=== PATIENT | male | born 1985 | race Caucasian/White ===

== ENCOUNTER 2016-12-08 13:00 | Outpatient (CLI) ==
[2016-08-12 10:02] VITALS: BMI 30.4
--- NOTE | 2016-12-08 14:22 | US ---
EXAMINATION: Retroperitoneal renal sonogram. HISTORY: Painful maturation, unspecified TECHNIQUE: Real time with duplex. COMPARISON: CT abdomen from 08/12/2016 FINDINGS: Right Kidney: 10.5 x 4.3 x 4.6 cm, cortex 1.4 cm Left kidney: 10.4 x 4.9 x 4.0 cm, cortex 1.3 cm The kidneys have normal size, contour, position, and echogenicity. No hydroureter or hydronephrosis is appreciated. A trace postvoid bladder residual is noted. The bladder is morphologically normal. No echogenic calculi or mass lesions are demonstrated. IMPRESSION: 1. Normal renal sonogram 2. Trace postvoid bladder residual. 3. No ureteral pelvicaliectasis.
== END 2016-12-08 13:01 | disposition home or self-care (01) ==
LOC: RAD 13:00
PROVIDERS: ATTEND Nurse Practitioner Family
DX: R30.9 Painful micturition, unspecified (principal); M54.5 Low back pain
CPT/HCPCS: 76770

== ENCOUNTER 2016-12-16 14:13 | Outpatient (CLI) ==
[2016-08-12 10:02] VITALS: BMI 30.4
--- NOTE | 2016-12-16 15:38 | US ---
EXAM: Scrotal ultrasound HISTORY: Pain 1 month COMPARISON: None TECHNIQUE: Scrotal ultrasound was performed FINDINGS: Right testicle noted to be located in the right inguinal region. Right testicle measures 2.2 x 2.7 x 3.3 cm. Right testicle is normal in echogenicity. Right testicle appears decreased in vascularit y. There is arterial Doppler flow present in the right testicle. Right epididymis appears normal. . No right hydrocele or varicocele. Left testicle measures 1.5 x 2.0 x 2.6 cm. Left testicle is normal in echogenicity. Left testicle appears decreased in vascularity. There is arterial Doppler flow present in the left testicle. Lef t epididymis not visualized. No left hydrocele or varicocele. There is marked bilateral scrotal wall thickening/edema, greater on the left. There are areas of ec hogenic artifact in the scrotal subcutaneous soft tissues. IMPRESSION: 1. Marked bilateral scrotal wall thickening/edema. There are areas of echogenic artifact in the sc rotal subcutaneous/soft tissues, raising possibility of subcutaneous air. CT pelvis with contrast r ecommended for further evaluation. 2. Right testicle noted to be located in the right inguinal region. Testicles are normal in echoge nicity with Doppler flow present in both testicles. Symmetrically decreased vascularity in both kenny ticles is likely due to marked scrotal wall edema/thickening, with torsion considered unlikely give n symmetric nature, normal testicular echogenicity, and chronic symptoms.. 3. Normal right epididymis. Left epididymis not visualized.
--- NOTE | 2016-12-16 16:29 | CT ---
EXAM: CT pelvis with contrast HISTORY: Other specified disorders of the male genital organs COMPARISON: None TECHNIQUE: CT pelvis performed with intravenous contrast. Coronal and sagittal reformatted images obtained. FINDINGS: The visualized bowel is unremarkable. There are bilateral pars defects L5. No anterolis thesis. No acute abnormalities of the bones. Bladder unremarkable. Prostate normal in size. No l ymphadenopathy or ascites. Both testicles are located in the scrotal sac. No scrotal wall thickeni ng identified. No subcutaneous air or scrotal air identified. No inflammatory changes identified i n the pelvis. IMPRESSION: 1. No inflammatory changes identified in the pelvis. No scrotal wall thickening or air. Findings on ultrasound were artifactual. Both testicles are located in the scrotum. 2. Bilateral pars defects of L5. No anterolisthesis.
== END 2016-12-16 14:14 | disposition home or self-care (01) ==
LOC: RAD 14:13
PROVIDERS: ATTEND Nurse Practitioner Family
DX: N50.89 Other specified disorders of the male genital organs (principal); R30.9 Painful micturition, unspecified

== ENCOUNTER 2017-03-03 06:23 | Emergency (ER) ==
[2017-03-03 06:36] VITALS: BP 147/98; TEMP 98.4; BMI 27.1
[2017-03-03] MEDS ORDERED: URO-JET MUCOUSMEMB STA (06:47)
[2017-03-03] MEDS ORDERED: FLOMAX PO STA (06:50)
--- NOTE | 2017-03-03 06:53 | ED.PDOC ---
General ED Provider: Dr. DUDLEY CHILD-ER Chief Complaint: Urinary Problem Stated Complaint: i havent been able to pee Time Seen by Physician: 06:51 Mode of Arrival: Walk-In Information Source: Patient Exam Limitations: No limitations Primary Care Provider: DANGELO CARO Nursing and Triage Documentation Reviewed and Agree: Yes Complaint Exam - Complaint/Exam Patient Complains of: Reports: Groin pain Onset/Duration: 8hrs Symptoms Are: Still present Timing: Constant Initial Severity: Mild Current Severity: Moderate Location of Pain: Reports: Suprapubic Character: Reports: Dull, Cramping Aggravating: Reports: Voiding Alleviating: Reports: None Associated Signs and Symptoms: Reports: Decreased urine output, Abdominal Pain. Denies: Diaphoresis, Back pain, Fever, Hematuria, Dysuria, Constipation, Blood in stool, Rectal pain, Appetite change, Nausea, Vomiting, Penile swelling , Penile discharge, Increased urine frequency, Increased thirst, Decreased activity, Lethargy, Scrotal pain, Scrotal swelling Last Voided: midnight Testicular Torsion Risk Factors: Reports: None Surgical Obstruction Risk Factors: Reports: None Abdominal Findings: Present: None Differential Diagnoses: Other Review of Systems - Review Of Systems Constitutional: Reports: No symptoms Eyes: Reports: No symptoms Ears, Nose, Mouth, Throat: Reports: No symptoms Respiratory: Reports: No symptoms Cardiac: Reports: No symptoms GI: Reports: No symptoms : Reports: Pain Musculoskeletal: Reports: No symptoms Skin: Reports: No symptoms Neurological: Reports: No symptoms Endocrine: Reports: No symptoms Hematologic/Lymphatic: Reports: No symptoms All Other Systems: Reviewed and Negative Past Medical History - Past Medical History Previously Healthy: Yes Endocrine: Reports: Dyslipidemia Cardiovascular: Reports: Hypertension Respiratory: Reports: None Hematological: Reports: None Gastrointestinal: Reports: GERD Genitourinary: Reports: None, UTI Neuro/Psych: Reports: None Musculoskeletal: Reports: None Cancer: Reports: None Other Pertinent Past Medical History: Yes: ALCOHOLIC, abdominal pain - Surgical History General Surgical History: Reports: Other (CORNEAL TRANSPLANTS [id number] REMOVAL (LEFT)) - Family History Family History: Reports: Unknown - Social History Smoking Status: Former smoker Hx Substance Use: Yes (MARIJUANA) Alcohol Screening: None Lives: With family - Immunizations Tetanus Shot up to Date: Yes Physical Exam - Physical Exam Appearance: Well-appearing, No pain distress, Well-nourished Pain Distress: Mild Eyes: EUGENE, EOMI, Conjunctiva clear ENT: Ears normal, Nose normal, Oropharynx normal Neck: Supple Respiratory: Airway patent Cardiovascular: RRR, Pulses normal, No rub, No murmur GI/: Soft, Nontender, No masses, Bowel sounds normal, No Organomegaly Musculoskeletal: Normal strength, ROM intact, No edema, No calf tenderness Skin: Warm Neurological: Sensation intact, Motor intact, Reflexes intact, Cranial nerves intact, Alert, Oriented Psychiatric: Affect appropriate, Mood appropriate, Anxious Re-Evaluation - Re-Evaluation Time of Re-Evaluation: 06:53 Status: Improved Vital Signs Stable: Yes Pain Level: 1 Appearance: NAD Lungs: Clear Skin: Warm and Dry Neuro: Alert and Oriented X3 CV: RRR Critical Care Note - Critical Care Note Total Time (mins): 0 Course - Course Orders, Labs, Meds: Orders Category Date Time Status Bladder Scan [ED BLADDER SCAN] .ONCE EMERGENCY 03/03/17 06:47 Active Garcia [ED CATHETER INSERTION AND CARE] .ONCE EMERGENCY 03/03/17 06:47 Active Lidocaine HCl [Uro-Jet] MEDS 03/03/17 06:47 Discontinued 10 ml [id number] ONCE STA Tamsulosin HCl [Flomax] MEDS 03/03/17 06:50 Discontinued 0.4 mg PO ONCE STA Medications Discontinued Medications Generic Name Dose Route Start Last Admin Trade Name Jorge Lq PRN Reason Stop Dose Admin Lidocaine HCl 10 ml 03/03/17 06:47 Uro-Jet [id number] 03/03/17 06:48 ONCE STA Tamsulosin HCl 0.4 mg 03/03/17 06:50 Flomax PO 03/03/17 06:51 ONCE STA Vital Signs: Temp Pulse Resp BP Pulse Ox 03/03/17 06:26 98.4 F 93 H 20 147/98 H 98 Departure - Departure Time of Disposition: 06:54 Disposition: HOME SELF-CARE Discharge Problem: Acute urinary retention Instructions: Urinary Retention in Men (ED) Condition: Good Pt referred to PMD for follow-up: Yes Additional Instructions: flomax 0.4mg #14---doxycycline 100mg bid x 15 days--f/u wtih dr mcnamara Allergies/Adverse Reactions: Allergies clindamycin Adverse Reaction (Verified 03/03/17 06:33) Hives Home Medications: Ambulatory Orders Dextroamphetamine/Amphetamine [Adderall 30 mg Tablet] 15 mg PO DIRECTED 03/03 Dextroamphetamine/Amphetamine [Adderall 30 mg Tablet] 30 mg PO QAM 03/03/17 Disposition Discussed With: Patient
[2017-03-03 08:35] LABS: ADD URINE MICROSCOPIC NO; BILIRUBIN,URINE Negative (NEGATIVE); KETONES,URINE Negative (NEGATIVE); LEUKOCYTE ESTERASE ,URINE Negative (NEGATIVE); NITRITE,URINE Negative (NEGATIVE); PH,URINE 6.5 (5-9); PROTEIN,URINE Negative (NEGATIVE); URINE, BLOOD Negative (NEGATIVE)
== END 2017-03-03 07:40 | disposition home or self-care (01) ==
LOC: ED 06:23
DX: R33.9 Retention of urine, unspecified (principal); R10.30 Lower abdominal pain, unspecified
CPT/HCPCS: 81001; 99282

== ENCOUNTER 2017-03-07 01:25 | Emergency (ER) ==
[2017-03-07 01:44] VITALS: BP 148/90; TEMP 98.9; BMI 25.8
[2017-03-07 02:25] LABS: BASOPHILS # (AUTO) 0.1 K/uL (0-0.2); BASOPHILS % (AUTO) 0.6 % (0.0-3.0); EOSINOPHILS # (AUTO) 0.2 K/ul (0.0-0.7); EOSINOPHILS % (AUTO) 1.3 % (0.0-7.0); HEMATOCRIT 41.9 % (42.0-52.0); HEMOGLOBIN 14.4 g/dl (14.0-18.0); IMMATURE GRANULOCYTE % (AUTO) 0.3 % (0.0-5.0); LYMPHOCYTES # (AUTO) 2.3 K/uL (0.60-3.4); LYMPHOCYTES % (AUTO) 19.9 (10.0-50.0); MEAN CORPUSCULAR HGB CONC 34.4 (31.8-35.4); MEAN CORPUSCULAR VOLUME 84.5 fl (80.0-94.0); MONOCYTES # (AUTO) 0.7 K/uL (0.4-2.0); MONOCYTES % (AUTO) 5.6 (0-10); NEUTROPHILS # (AUTO) 8.4 K/ul (2.0-6.9); NEUTROPHILS % (AUTO) 72.3; PLATELET COUNT 236 10^3/uL (140-440); RED BLOOD COUNT 4.96 10^6/ul (4.70-6.10); WHITE BLOOD COUNT 11.61 K/ul (4.2-10.2)
[2017-03-07 02:43] LABS: ALBUMIN 3.8 g/dL (3.4-5.0); ALBUMIN/GLOBULIN RATIO 1.23; ANION GAP 13.6; BILIRUBIN,TOTAL 0.26 mg/dL (0.00-1.20); BUN/CREATININE RATIO 7.69; CALCIUM 9.4 mg/dL (8.2-10.2); CREATININE 0.91 mg/dL (0.60-1.10); POTASSIUM 3.6 mmol/L (3.5-5.1); TOTAL PROTEIN 6.9 g/dL (6.4-8.2)
[2017-03-07 02:48] LABS: BILIRUBIN,URINE Negative (NEGATIVE); KETONES,URINE Negative (NEGATIVE); LEUKOCYTE ESTERASE ,URINE Negative (NEGATIVE); NITRITE,URINE Negative (NEGATIVE); PH,URINE 5.5 (5-9); PROTEIN,URINE Negative (NEGATIVE); URINE, BLOOD Negative (NEGATIVE)
[2017-03-07 02:49] LABS: ADD URINE MICROSCOPIC NO
--- NOTE | 2017-03-07 03:45 | CT ---
EXAM: CT scan abdomen pelvis with without contrast HISTORY: Abdominal pain COMPARISON: CT scan abdomen pelvis 08/12/2016 FINDINGS: Contiguous axial images obtained through the abdomen pelvis for after uneventful administ ration intravenous contrast utilizing 3-mm collimation. Sagittal coronal reconstructions were image d and reviewed.. The visualized lung bases are clear. Gallbladder is contracted. The liver, pancr eas, spleen and adrenal glands have normal enhanced CT appearance. The kidneys excrete contrast in a normal fashion bilaterally.. The abdominal aorta is normal in course and caliber There is a smal l umbilical hernia containing fat There is a normal retrocecal appendix. The prostate gland normal in size.. There is no free fluid or inflammatory changes. There is bilateral pars defect at L5. IMPRESSION: No acute intra-abdominal findings.
[2017-03-07] MEDS ORDERED: ROCEPHIN IM STA (04:09)
[2017-03-07] MEDS ORDERED: LIDOCAINE 1 % AMP 5 ML (SUTURES) IM STA (04:09)
[2017-03-07] MEDS ORDERED: NORCO 7.5-325 PO STA (04:10)
[2017-03-07] MEDS ORDERED: PYRIDIUM PO STA (04:10)
--- NOTE | 2017-03-07 04:13 | ED.PDOC ---
General ED Provider: Dr. DUDLEY CHILD-ER Chief Complaint: Abdominal Pain Stated Complaint: it hurts when i pee Time Seen by Physician: 01:40 Mode of Arrival: Walk-In Information Source: Patient Exam Limitations: No limitations Primary Care Provider: DANGELO CARO Nursing and Triage Documentation Reviewed and Agree: Yes Complaint Exam - Complaint/Exam Patient Complains of: Reports: Dysuria Onset/Duration: 16hrs Symptoms Are: Still present Initial Severity: Mild Current Severity: Mild Location of Pain: Reports: Suprapubic Character: Reports: Burning, Dull Aggravating: Reports: Voiding Alleviating: Reports: None Associated Signs and Symptoms: Reports: Abdominal Pain. Denies: Diaphoresis, Back pain, Fever, Hematuria, Dysuria, Constipation, Blood in stool, Rectal pain , Appetite change, Nausea, Vomiting, Penile swelling, Penile discharge, Decreased urine output, Increased urine frequency, Increased thirst, Decreased activity, Lethargy, Scrotal pain, Scrotal swelling Testicular Torsion Risk Factors: Reports: None Related Surgical History: Reports: None Abdominal Findings: Present: None Differential Diagnoses: Prostatitis, UTI, Other Review of Systems - Review Of Systems Constitutional: Reports: No symptoms Eyes: Reports: No symptoms Ears, Nose, Mouth, Throat: Reports: No symptoms Respiratory: Reports: No symptoms Cardiac: Reports: No symptoms GI: Reports: No symptoms : Reports: Burning, Dysuria, Pain, Urgency Musculoskeletal: Reports: No symptoms Skin: Reports: No symptoms Neurological: Reports: No symptoms Endocrine: Reports: No symptoms Hematologic/Lymphatic: Reports: No symptoms All Other Systems: Reviewed and Negative Past Medical History - Past Medical History Previously Healthy: Yes Endocrine: Reports: Dyslipidemia Cardiovascular: Reports: Hypertension Respiratory: Reports: None Hematological: Reports: None Gastrointestinal: Reports: GERD Genitourinary: Reports: None, UTI Neuro/Psych: Reports: None Musculoskeletal: Reports: None Cancer: Reports: None Other Pertinent Past Medical History: Yes: ALCOHOLIC, abdominal pain - Surgical History General Surgical History: Reports: Other (CORNEAL [employer]ANSPLANTS [id number] REMOVAL (LEFT)) - Family History Family History: Reports: Unknown - Social History Smoking Status: Former smoker Hx Substance Use: Yes (MARIJUANA) Alcohol Screening: None Lives: With family - Immunizations Tetanus Shot up to Date: Yes Physical Exam - Physical Exam Appearance: Well-appearing, No pain distress, Well-nourished Eyes: EUGENE, EOMI, Conjunctiva clear ENT: Ears normal, Nose normal, Oropharynx normal Neck: Supple Respiratory: Airway patent Cardiovascular: RRR, Pulses normal, No rub, No murmur GI/: Soft, Nontender, No masses, Bowel sounds normal, No Organomegaly Musculoskeletal: Normal strength, ROM intact, No edema, No calf tenderness Skin: Warm Neurological: Sensation intact, Motor intact, Reflexes intact, Cranial nerves intact, Alert, Oriented Psychiatric: Affect appropriate, Mood appropriate Interpretation - Radiology Interpretation Radiology Interpretation By: Radiologist Radiology Results: Negative Exam Interpreted: CT Scan Critical Care Note - Critical Care Note Total Time (mins): 0 Course - Course Hematology/Chemistry: 03/07/17 02:20 03/07/17 02:20 Orders, Labs, Meds: Lab Review 03/07/17 03/07/17 02:20 02:35 WBC 11.61 H RBC 4.96 Hgb 14.4 Hct 41.9 L MCV 84.5 MCH 29.0 MCHC 34.4 RDW Coeff of Zoey 13.1 Plt Count 236 Immature Gran % (Auto) 0.3 Neut % (Auto) 72.3 Lymph % (Auto) 19.9 [place] % (Auto) 5.6 Eos % (Auto) 1.3 Baso % (Auto) 0.6 Immature Gran # (Auto) 0.0 Neut # 8.4 H Lymph # 2.3 [place] # 0.7 Eos # 0.2 Baso # 0.1 Sodium 139 Potassium 3.6 Chloride 105 Carbon Dioxide 24 Anion Gap 13.6 BUN 7 Creatinine 0.91 Estimated GFR (MDRD) 96.00 BUN/Creatinine Ratio 7.69 Glucose 117 H Calcium 9.4 Total Bilirubin 0.26 AST 18 ALT 15 Alkaline Phosphatase 49 L Total Protein 6.9 Albumin 3.8 Globulin 3.1 Albumin/Globulin Ratio 1.23 Amylase 22 L Lipase 25 Urine Color Yellow Urine Clarity Clear Urine pH 5.5 Ur Specific [place] >=1.030 Urine Protein Negative Urine Glucose (UA) Negative Urine Ketones Negative Urine Blood Negative Urine Nitrite Negative Urine Bilirubin Negative Urine Urobilinogen 0.2 Ur Leukocyte Esterase Negative Orders Category Date Time Status NPO REMINDER: IMAGING ONCE CARE 03/07/17 01:58 Completed IV [ED IV/MEDIPORT/POWERPORT] .ONCE EMERGENCY 03/07/17 01:58 Active AMYLASE Stat LAB 03/07/17 02:20 Completed CBC W/ AUTO DIFF Stat LAB 03/07/17 02:20 Completed COMPREHENSIVE METABOLIC PANEL Stat LAB 03/07/17 02:20 Completed LIPASE Stat LAB 03/07/17 02:20 Completed URINALYSIS C & S IF INDICATED Stat LAB 03/07/17 02:35 Completed 0.9 % Sodium Chloride [Saline Flush] MEDS 03/07/17 01:58 Active 1 syr IVF PRN PRN Ceftriaxone Sodium [Rocephin] MEDS 03/07/17 04:09 Stat 1 gm IM ONCE STA Hydrocodone Bit/Acetaminophen [[place] 7.5-325] MEDS 03/07/17 04:10 Stat 1 tab PO ONCE STA Lidocaine HCl/Pf [Lidocaine 1 % Amp 5 ml (Sutures)] MEDS 03/07/17 04:09 Stat 2.1 ml IM ONCE STA Phenazopyridine HCl [Pyridium] MEDS 03/07/17 04:10 Stat [address] PO ONCE [address] ABDOMEN/PELVIS W/WO CONTRAS Stat RADS 03/07/17 01:57 Completed Medications Generic Name Dose Route Start Last Admin Trade Name Freq PRN Reason Stop Dose Admin Acetaminophen/Hydrocodone Bitart 1 tab 03/07/17 04:10 [place] 7.5-325 PO 03/07/17 04:11 ONCE STA Ceftriaxone Sodium 1 gm 03/07/17 04:09 Rocephin IM 03/07/17 04:10 ONCE STA Lidocaine HCl 2.1 ml 03/07/17 04:09 Lidocaine 1 % Amp 5 Ml (Sutures) IM 03/07/17 04:10 ONCE STA Phenazopyridine HCl 200 mg 03/07/17 04:10 Pyridium PO 03/07/17 04:11 ONCE STA Sodium Chloride 1 syr 03/07/17 01:58 Saline Flush IVF PRN PRN To flush IV Vital Signs: Temp Pulse Resp BP Pulse Ox 03/07/17 01:34 98.9 F 99 H 20 148/90 H 96 Departure - Departure Time of Disposition: 04:13 Disposition: HOME SELF-CARE Discharge Problem: Dysuria Instructions: Dysuria (ED) Condition: Good Pt referred to PMD for follow-up: Yes Additional Instructions: contnue flomax and doxycycline--pyridium 200mg tid with food #60---keep appt with dr mcnamara Allergies/Adverse Reactions: Allergies clindamycin Adverse Reaction (Verified 03/07/17 01:44) Hives Home Medications: Ambulatory Orders Dextroamphetamine/Amphetamine [Adderall 30 mg Tablet] 15 mg PO DIRECTED 03/03 Dextroamphetamine/Amphetamine [Adderall 30 mg Tablet] 30 mg PO QAM 03/03/17 Doxycycline Hyclate 100 mg PO BID 03/07/17 Disposition Discussed With: Patient
== END 2017-03-07 04:40 | disposition home or self-care (01) ==
LOC: ED 01:25
DX: R30.0 Dysuria (principal); R10.30 Lower abdominal pain, unspecified; I10 Essential (primary) hypertension; E78.5 Hyperlipidemia, unspecified
CPT/HCPCS: 36415; 80053; 81001; 82150; 83690; 85025; 96372; 99284

== ENCOUNTER 2017-08-23 19:47 | Emergency (ER) ==
[2017-08-23 19:48] VITALS: BMI 25.8
[2017-08-23 19:55] VITALS: BP 135/94; TEMP 97.7
[2017-08-23 20:31] LABS: BASOPHILS # (AUTO) 0.1 K/uL (0-0.2); BASOPHILS % (AUTO) 0.5 % (0.0-3.0); EOSINOPHILS # (AUTO) 0.1 K/ul (0.0-0.7); EOSINOPHILS % (AUTO) 1.3 % (0.0-7.0); HEMATOCRIT 42.7 % (42.0-52.0); HEMOGLOBIN 14.3 g/dl (14.0-18.0); IMMATURE GRANULOCYTE % (AUTO) 0.3 % (0.0-5.0); LYMPHOCYTES # (AUTO) 1.7 K/uL (0.60-3.4); LYMPHOCYTES % (AUTO) 17.8 (10.0-50.0); MEAN CORPUSCULAR HEMOGLOBIN 28.8 pg (27.0-31.0); MEAN CORPUSCULAR HGB CONC 33.5 (31.8-35.4); MEAN CORPUSCULAR VOLUME 85.9 fl (80.0-94.0); MONOCYTES # (AUTO) 0.6 K/uL (0.4-2.0); MONOCYTES % (AUTO) 6.3 (0-10); NEUTROPHILS # (AUTO) 6.9 K/ul (2.0-6.9); NEUTROPHILS % (AUTO) 73.8; PLATELET COUNT 311 10^3/uL (140-440); RED BLOOD COUNT 4.97 10^6/ul (4.70-6.10); WHITE BLOOD COUNT 9.28 K/ul (4.2-10.2)
[2017-08-23 20:32] LABS: BILIRUBIN,URINE Negative (NEGATIVE); KETONES,URINE Negative (NEGATIVE); LEUKOCYTE ESTERASE ,URINE Negative (NEGATIVE); NITRITE,URINE Negative (NEGATIVE); PH,URINE 6.5 (5-9); PROTEIN,URINE 2+ (NEGATIVE); URINE, BLOOD Negative (NEGATIVE)
--- NOTE | 2017-08-23 20:32 | ED.PDOC ---
General ED Provider: Dr. DUDLEY CHILD-ER Chief Complaint: Urinary Problem Stated Complaint: my back hurts and it hurts to pee Time Seen by Physician: 19:50 Mode of Arrival: Walk-In Information Source: Patient Exam Limitations: No limitations Primary Care Provider: DANGELO CARO Nursing and Triage Documentation Reviewed and Agree: Yes Complaint Exam - Complaint/Exam Patient Complains of: Reports: Dysuria Onset/Duration: 24 hrs Symptoms Are: Still present Timing: Intermittent Initial Severity: Mild Current Severity: Moderate Location of Pain: Reports: Flank, Testicle Character: Reports: Burning, Dull Aggravating: Reports: Voiding Alleviating: Reports: None Associated Signs and Symptoms: Reports: Dysuria. Denies: Diaphoresis, Back pain , Fever, Hematuria, Constipation, Blood in stool, Rectal pain, Appetite change, Nausea, Vomiting, Penile swelling, Penile discharge, Decreased urine output, Increased urine frequency, Increased thirst, Decreased activity, Lethargy, Scrotal pain, Scrotal swelling, Abdominal Pain Related History: Reports: Similar episode Testicular Torsion Risk Factors: Reports: None Surgical Obstruction Risk Factors: Reports: None Related Surgical History: Reports: None Abdominal Findings: Present: None Genitalia Exam: Present: Normal findings Differential Diagnoses: Prostatitis, UTI, Ureteral Calculi Review of Systems - Review Of Systems Constitutional: Reports: No symptoms Eyes: Reports: No symptoms Ears, Nose, Mouth, Throat: Reports: No symptoms Respiratory: Reports: No symptoms Cardiac: Reports: No symptoms GI: Reports: No symptoms : Reports: Burning, Dysuria, Flank pain Musculoskeletal: Reports: No symptoms Skin: Reports: No symptoms Neurological: Reports: No symptoms Endocrine: Reports: No symptoms Hematologic/Lymphatic: Reports: No symptoms All Other Systems: Reviewed and Negative Past Medical History - Past Medical History Previously Healthy: Yes Endocrine: Reports: Dyslipidemia Cardiovascular: Reports: Hypertension Respiratory: Reports: None Hematological: Reports: None Gastrointestinal: Reports: GERD Genitourinary: Reports: None, UTI Neuro/Psych: Reports: None Musculoskeletal: Reports: None Cancer: Reports: None Other Pertinent Past Medical History: Yes: ALCOHOLIC, abdominal pain - Surgical History General Surgical History: Reports: Other (CORNEAL TRANSPLANTS [id number] REMOVAL (LEFT)) - Family History Family History: Reports: Unknown - Social History Smoking Status: Former smoker Hx Substance Use: Yes (MARIJUANA/RECOVERING ALCOHOLIC) Alcohol Screening: None Lives: With family - Immunizations Tetanus Shot up to Date: Yes Physical Exam - Physical Exam Appearance: Well-appearing, No pain distress, Well-nourished Pain Distress: Mild Eyes: EUGENE ENT: Ears normal, Nose normal, Oropharynx normal Neck: Supple Respiratory: Airway patent, Breath sounds clear, Breath sounds equal, Respirations nonlabored Cardiovascular: RRR, Pulses normal, No rub, No murmur GI/: Soft, Nontender, No masses, Bowel sounds normal, No Organomegaly Musculoskeletal: Normal strength Skin: Warm Neurological: Sensation intact Psychiatric: Affect appropriate, Mood appropriate Interpretation - Radiology Interpretation Radiology Interpretation By: Radiologist Radiology Results: Negative Exam Interpreted: CT Scan Critical Care Note - Critical Care Note Total Time (mins): 0 Course - Course Hematology/Chemistry: 08/23/17 20:25 08/23/17 20:25 Orders, Labs, Meds: Lab Review 08/23/17 08/23/17 08/23/17 20:09 20:25 20:25 WBC 9.28 RBC 4.97 Hgb 14.3 Hct 42.7 MCV 85.9 MCH 28.8 MCHC 33.5 RDW Coeff of Zoey 13.2 Plt Count 311 Immature Gran % (Auto) 0.3 Neut % (Auto) 73.8 Lymph % (Auto) 17.8 [place] % (Auto) 6.3 Eos % (Auto) 1.3 Baso % (Auto) 0.5 Immature Gran # (Auto) 0.0 Neut # 6.9 Lymph # 1.7 [place] # 0.6 Eos # 0.1 Baso # 0.1 Sodium 138 Potassium 4.2 Chloride 100 Carbon Dioxide 29 Anion Gap 13.2 BUN 6 L Creatinine 0.81 Estimated GFR (MDRD) 109.00 BUN/Creatinine Ratio 7.40 Glucose 112 H Calcium 9.8 Total Bilirubin 0.44 AST 16 ALT 22 Alkaline Phosphatase 67 Total Protein 7.3 Albumin 3.6 Globulin 3.7 Albumin/Globulin Ratio 0.97 Urine Color Yellow Urine Clarity Clear Urine pH 6.5 Ur Specific [place] 1.025 Urine Protein 2+ Urine Glucose (UA) Negative Urine Ketones Negative Urine Blood Negative Urine Nitrite Negative Urine Bilirubin Negative Urine Urobilinogen 0.2 Ur Leukocyte Esterase Negative Urine Microscopic RBC 0-2 Ur Squamous Epith Cells 0-2 Urine Mucus Trace Urine Sperm Trace Orders Category Date Time Status Bladder Scan [ED BLADDER SCAN] .ONCE EMERGENCY 08/23/17 20:14 Active CBC W/ AUTO DIFF Stat LAB 08/23/17 20:25 Completed COMPREHENSIVE METABOLIC PANEL Stat LAB 08/23/17 20:25 Completed URINALYSIS C & S IF INDICATED Stat LAB 08/23/17 20:09 Completed Ceftriaxone Sodium [Rocephin] MEDS 08/23/17 20:55 Discontinued 250 mg IM ONCE STA Lidocaine HCl/Pf [Lidocaine HCl 1% Sdv] MEDS 08/23/17 20:55 Discontinued 5 ml SUBCUT ONCE STA CT ABDOMEN/PELVIS WO CONTRAST Stat RADS 08/23/17 20:15 Completed Medications Discontinued Medications Generic Name Dose Route Start Last Admin Trade Name Oleksandr PRN Reason Stop Dose Admin Ceftriaxone Sodium 250 mg 08/23/17 20:55 Rocephin IM 08/23/17 20:56 ONCE STA Lidocaine HCl 5 ml 08/23/17 20:55 Lidocaine Hcl 1% Sdv SUBCUT 08/23/17 20:56 ONCE STA Vital Signs: Temp Pulse Resp BP Pulse Ox 08/23/17 19:49 97.7 F 109 H 18 135/94 H 98 Departure - Departure Time of Disposition: 20:56 Disposition: HOME SELF-CARE Discharge Problem: Urinary tract infectious disease Instructions: Nonspecific Urethritis in Men (ED) Condition: Good Pt referred to PMD for follow-up: Yes Additional Instructions: doxycycline 100mg q 12hrs #30--pyridium 200mg tid with food #6--f/u with pcp Allergies/Adverse Reactions: Allergies clindamycin Adverse Reaction (Verified 08/23/17 19:55) Hives Home Medications: Ambulatory Orders Dextroamphetamine/Amphetamine [Adderall 30 mg Tablet] 30 mg PO TID 03/03/17 Tamsulosin HCl [Flomax] 0.4 mg PO BEDTIME 04/20/17 Disposition Discussed With: Patient
[2017-08-23 20:33] LABS: ADD URINE MICROSCOPIC YES
[2017-08-23 20:42] LABS: SPERM,URINE TRACE (NOT PRESENT)
[2017-08-23 20:49] LABS: ALBUMIN 3.6 g/dL (3.4-5.0); ALBUMIN/GLOBULIN RATIO 0.97; ANION GAP 13.2; BILIRUBIN,TOTAL 0.44 mg/dL (0.00-1.20); BUN/CREATININE RATIO 7.4; CALCIUM 9.8 mg/dL (8.2-10.2); CREATININE 0.81 mg/dL (0.60-1.10); POTASSIUM 4.2 mmol/L (3.5-5.1); TOTAL PROTEIN 7.3 g/dL (6.4-8.2)
--- NOTE | 2017-08-23 20:54 | CT ---
EXAM: CT scan abdomen pelvis without contrast HISTORY: Abdominal pain COMPARISON: CT scan abdomen pelvis 03/07/2017 FINDINGS: Contiguous axial images obtained through the abdomen pelvis without contrast utilizing 3-m m collimation. Sagittal and coronal reconstructions were imaged and reviewed.. The visualized lung bases are clear. The gallbladder is fluid filled without cholelithiasis. The liver, pancreas, spleen and adrenal glands have normal unenhanced CT appearance Mild atherosclerotic changes are seen invol ving the aorta without aneurysm formation. There is no CT evidence of appendicitis. The prostate gla nd is normal in size.. There is mild colonic fecal stasis in the right colon. There is bilateral par s defect at L5 with minimal anterolisthesis. IMPRESSION: No acute intra-abdominal findings.
[2017-08-23] MEDS ORDERED: LIDOCAINE HCL 1% SDV SUBCUT STA (20:55)
[2017-08-23] MEDS ORDERED: ROCEPHIN IM STA (20:55)
== END 2017-08-23 21:34 | disposition home or self-care (01) ==
LOC: ED 19:47
DX: N39.0 Urinary tract infection, site not specified (principal)
CPT/HCPCS: 36415; 51798; 80053; 81001; 85025; 96372; 99283

== ENCOUNTER 2017-09-02 04:12 | Outpatient (CLI) ==
[2017-09-02 04:36] VITALS: BMI 24.5
== END 2017-09-02 04:13 | disposition home or self-care (01) ==
LOC: AMBL 04:12
PROVIDERS: ATTEND Emergency Medicine
DX: S59.912A Unspecified injury of left forearm, initial encounter (principal); W19.XXXA Unspecified fall, initial encounter

== ENCOUNTER 2018-04-04 10:49 | Emergency (ER) ==
[2018-04-04 10:52] VITALS: BP 161/93; BMI 30.7
--- NOTE | 2018-04-04 10:57 | ED.PDOC ---
General ED Provider: Dr. DUDLEY CHILD-ER Chief Complaint: Earache Stated Complaint: my ears hurt and my throat is sore Time Seen by Physician: 10:55 Mode of Arrival: Walk-In Information Source: Patient Exam Limitations: No limitations Primary Care Provider: KASSANDRA [facility] Nursing and Triage Documentation Reviewed and Agree: Yes Reviewed sepsis parameters & appropriate labs ordered?: Yes System Inflammatory Response Syndrome: Not Applicable Sepsis Protocol: For patient's 13 years and over: Temp is 96.8 and below OR 101 and greater Pulse >90 BPM Resp >20/minute Acutely Altered Mental Status Are patient's symptoms suggestive of a new infection, such as: -Pneumonia -Skin, Soft Tissue -Endocarditis -UTI -Bone, Joint Infection -Implantable Device -Acute Abdominal Infection -Wound Infection -Meningitis -Blood Stream Catheter Infection -Unknown EENT Complaint Exam - Ear Complaint/Exam Onset/Duration: 2 days Symptoms Are: Still present Timing: Constant Initial Severity: Mild Current Severity: Mild Character: Reports: Dull pain Alleviating: Reports: None Associated Signs and Symptoms: Reports: Sore throat, URI symptoms. Denies: Ear trauma, Ear swelling, Discharge, Fever, Hearing loss, Bleeding, Headache, Foreign body sensation, Rash, Pain to external ear, Pain to external face Vesicles to External Pinna: No Vesicles to Tragus: No Mastoid Tenderness: None Tragal Tenderness: None External Canal: Normal Tympanic Membrane: Dullness Differential Diagnoses: Otitis Media, URI, Serous Otitis Review of Systems - Review Of Systems Constitutional: Reports: No symptoms Eyes: Reports: No symptoms Ears, Nose, Mouth, Throat: Reports: Nose discharge, Throat pain Respiratory: Reports: No symptoms Cardiac: Reports: No symptoms GI: Reports: No symptoms : Reports: No symptoms Musculoskeletal: Reports: No symptoms Skin: Reports: No symptoms Neurological: Reports: No symptoms Endocrine: Reports: No symptoms Hematologic/Lymphatic: Reports: No symptoms All Other Systems: Reviewed and Negative Past Medical History - Past Medical History Previously Healthy: Yes Endocrine: Reports: Dyslipidemia Cardiovascular: Reports: Hypertension Respiratory: Reports: None Hematological: Reports: None Gastrointestinal: Reports: GERD Genitourinary: Reports: None, UTI Neuro/Psych: Reports: None Musculoskeletal: Reports: None Cancer: Reports: None Other Pertinent Past Medical History: Yes: ALCOHOLIC, abdominal pain - Surgical History General Surgical History: Reports: Other (CORNEAL [employer]ANSPL[employer]S [id number] REMOVAL (LEFT)) - Family History Family History: Reports: Unknown - Social History Smoking Status: Current every day smoker, Heavy tobacco smoker Hx Substance Use: Yes (MARIJUANA/RECOVERING ALCOHOLIC) Alcohol Screening: None Physical Exam - Physical Exam Appearance: Well-appearing, No pain distress, Well-nourished Eyes: EUGENE, EOMI, Conjunctiva clear ENT: Nose normal, Oropharynx normal (notd bilateral serous fluid wtih yellow post nasal drip), Rhinorrhea Neck: Supple Respiratory: Airway patent, Breath sounds clear, Breath sounds equal, Respirations nonlabored Cardiovascular: RRR GI/: Soft, Nontender, No masses, Bowel sounds normal, No Organomegaly Musculoskeletal: Normal strength, ROM intact, No edema, No calf tenderness Skin: Warm, Dry, Normal color Neurological: Sensation intact, Motor intact, Reflexes intact, Cranial nerves intact, Alert, Oriented Psychiatric: Affect appropriate, Mood appropriate Critical Care Note - Critical Care Note Total Time (mins): 0 Course - Course Vital Signs: Temp Pulse Resp BP Pulse Ox 04/04/18 10:49 97 F L 98 H 18 161/93 H 97 Departure - Departure Time of Disposition: 10:57 Disposition: HOME SELF-CARE Discharge Problem: Sinusitis Qualifiers: Sinusitis location: other Chronicity: acute Recurrence: not specified as recurrent Qualified Code(s): J01.80 - Other acute sinusitis Instructions: Sinusitis (ED) Condition: Good Pt referred to PMD for follow-up: Yes IPMP verified?: No Additional Instructions: augmentin 875mg bid x 10 days--medrol dose pack--f/u with pcp if not better in 48hrs Allergies/Adverse Reactions: Allergies clindamycin Adverse Reaction (Verified 04/04/18 10:53) Hives Home Medications: Ambulatory Orders 1 [No Reported Medications] 04/04/18 Disposition Discussed With: Patient
[2018-04-04 11:00] VITALS: TEMP 97
== END 2018-04-04 11:02 | disposition home or self-care (01) ==
LOC: ED 10:49
DX: J01.80 Other acute sinusitis (principal); F17.210 Nicotine dependence, cigarettes, uncomplicated
CPT/HCPCS: 99282

== ENCOUNTER 2018-12-22 12:38 | Outpatient (CLI) | END 2018-12-22 12:39 | disposition home or self-care (01) | LOC: RHC-LAB 12:38 | PROVIDERS: ATTEND Nurse Practitioner Family | DX: Z00.00 Encounter for general adult medical examination without abnormal findings (principal); Z87.898 Personal history of other specified conditions | CPT/HCPCS: 36415; 80053; 80061; 80074; 84443; 85025; 87522 ==

== ENCOUNTER 2018-12-30 15:40 | Emergency (ER) ==
[2018-12-30 15:42] VITALS: BP 160/88; TEMP 98.3; BMI 29.5
--- NOTE | 2018-12-30 17:31 | ED.PDOC ---
General ED Provider: Dr. DUDLEY SOUSA Chief Complaint: Extremity Pain/Injury Stated Complaint: Lt Wrist Pain . States injured while skateboarding when he fell injuring his Lt Wrist.In addition has discomfort to lt Shoulder and CLavicle. Movement of wrist or shoulder perserved Time Seen by Physician: 16:05 Mode of Arrival: Walk-In Information Source: Patient Exam Limitations: No limitations Primary Care Provider: POA FLORES Nursing and Triage Documentation Reviewed and Agree: Yes Does patient meet sepsis criteria?: No System Inflammatory Response Syndrome: Not Applicable Sepsis Protocol: For patient's 13 years and over: Temp is 96.8 and below OR 101 and greater Pulse >90 BPM Resp >20/minute Acutely Altered Mental Status Are patient's symptoms suggestive of a new infection, such as: -Pneumonia -Skin, Soft Tissue -Endocarditis -UTI -Bone, Joint Infection -Implantable Device -Acute Abdominal Infection -Wound Infection -Meningitis -Blood Stream Catheter Infection -Unknown Review of Systems - Review Of Systems Constitutional: Reports: No symptoms Eyes: Reports: No symptoms Ears, Nose, Mouth, Throat: Reports: No symptoms Respiratory: Reports: No symptoms Cardiac: Reports: No symptoms GI: Reports: No symptoms : Reports: No symptoms Musculoskeletal: Reports: No symptoms, Joint pain Skin: Reports: No symptoms Neurological: Reports: No symptoms Endocrine: Reports: No symptoms Hematologic/Lymphatic: Reports: No symptoms All Other Systems: Reviewed and Negative Past Medical History - Past Medical History Previously Healthy: Yes Endocrine: Reports: Dyslipidemia Cardiovascular: Reports: Hypertension Respiratory: Reports: None Hematological: Reports: None Gastrointestinal: Reports: GERD Genitourinary: Reports: None, UTI Neuro/Psych: Reports: None Musculoskeletal: Reports: None Cancer: Reports: None Other Pertinent Past Medical History: Yes: ALCOHOLIC, abdominal pain - Surgical History General Surgical History: Reports: Other (CORNE[employer] [id number] REMOVAL (LEFT)) - Family History Family History: Reports: Unknown - Social History Smoking Status: Current every day smoker, Heavy tobacco smoker Hx Substance Use: Yes (MARIJUANA/RECOVERING ALCOHOLIC) Alcohol Screening: None - Immunizations Tetanus Shot up to Date: No Physical Exam - Physical Exam Appearance: Well-appearing (+), No pain distress, Well-nourished Eyes: EUGENE, EOMI, Conjunctiva clear ENT: Ears normal, Nose normal, Oropharynx normal Respiratory: Airway patent, Breath sounds clear, Breath sounds equal, Respirations nonlabored Cardiovascular: RRR, Pulses normal, No rub, No murmur GI/: Soft, Nontender, No masses, Bowel sounds normal, No Organomegaly Musculoskeletal: ROM intact, No edema, No calf tenderness, Limited strength Skin: Warm, Dry, Normal color Neurological: Sensation intact, Motor intact, Reflexes intact, Cranial nerves intact, Alert, Oriented Psychiatric: Affect appropriate, Mood appropriate Interpretation - Radiology Interpretation Radiology Results: No acute changes (all imaging studies negative for acute injury) Critical Care Note - Critical Care Note Total Time (mins): 0 Course - Course Orders, Labs, Meds: Orders Category Date Time Status Wrist splint [ED SPLINT APPLICATION] .ONCE EMERGENCY 12/30/18 18:46 Active CLAVICLE, RIGHT 2 VIEWS Stat RADS 12/30/18 17:25 Completed SHOULDER, RIGHT MIN 2V Stat RADS 12/30/18 17:25 Completed WRIST, LEFT 3 VIEWS Stat RADS 12/30/18 17:25 Completed Vital Signs: Temp Pulse Resp BP Pulse Ox 12/30/18 15:40 98.3 F 69 18 160/88 H 98 Departure - Departure Time of Disposition: 18:45 Disposition: HOME SELF-CARE Discharge Problem: Strain of wrist, left, Right shoulder strain, Strain of acromioclavicular joint Instructions: Wrist Sprain (ED), Shoulder Pain (ED) Condition: Good Pt referred to PMD for follow-up: Yes (PCP next week) IPMP verified?: No Additional Instructions: Apply Ice to areas of discomfort Wears splint follow up PCP next week, If pain is persistent.See PCP for Poss MRI scan Take IBUPROFEN for pain as needed Allergies/Adverse Reactions: Allergies clindamycin Adverse Reaction (Verified 12/30/18 15:42) Hives Home Medications: Ambulatory Orders 1 [No Reported Medications] 12/30/18 Disposition Discussed With: Patient Musculoskeletal Complaint Exam - Hand/Wrist Complaint/Exam Location of Pain: Reports: Left, Wrist Mechanism of Injury: Reports: Trauma Onset/Duration: Earlier today Onset of Pain: Reports: Immediate Initial Severity: Mild Current Severity: Mild Location: Reports: Discrete Character: Reports: Aching Alleviating: Reports: Rest Aggravating: Reports: Movement Associated Signs and Symptoms: Reports: Swelling Dominant Hand: Right Related Surgical History: Reports: None Hand/Wrist Findings: Present: Swelling Tenderness: Present: Radius Compartment Syndrome Risk Factors: Present: Pain Differential Diagnoses: Closed Fracture, Strain - Shoulder Pain Complaint/Exam Mechanism of Injury: Reports: Trauma Onset/Duration: 45 min to 1 hr Symptoms Are: Still present Timing: Constant Initial Severity: Mild Current Severity: Mild Location: Reports: Discrete Character: Reports: Aching Alleviating: Reports: Rest Aggravating: Reports: Movement Associated Signs and Symptoms: Denies: Swelling, Redness, Bruising, Fever, Weakness, Numbness, Tingling Related History: Denies: Similar episode Non-Orthopedic Risk Factors: Reports: None DVT Risk Factors: Reports: None Septic Arthritis Risk Factors: Reports: None Related Surgical History: Reports: None Shoulder Findings: Absent: Swelling, Ecchymosis, Abnormal contour, Rotation, Ligamentous instability, Laceration, Erythema, Other joint pain Tenderness: Present: AC joint Limited Range of Motion: Present: Abduction Differential Diagnoses: Closed Fracture, Sprain, Strain
--- NOTE | 2018-12-30 18:10 | DI ---
EXAM: Three views of the left wrist HISTORY: Injury TECHNIQUE: AP lateral, oblique views of the left wrist were obtained. FINDINGS: The distal radius and ulna appear intact. There is a normal alignment of the carpal bones . The soft tissues appear within normal limits. IMPRESSION: No acute fracture dislocation seen within the left wrist.
--- NOTE | 2018-12-30 18:11 | DI ---
EXAM: Two views of the right clavicle HISTORY: Injury TECHNIQUE: Two AP frontal views of the right clavicle were obtained. FINDINGS: No acute fractures are seen. The right AC joint is normal. The soft tissues are normal. IMPRESSION: No acute fractures are seen within the right clavicle.
--- NOTE | 2018-12-30 18:13 | DI ---
EXAM: Three views of the right shoulder HISTORY: Injury TECHNIQUE: Internal and external AP frontal views of the right shoulder and a lateral view were obta ined. FINDINGS: The humeral head is seen in normal position. No acute fractures are seen. The soft tissu es are normal. IMPRESSION: No acute fracture dislocation seen within the right shoulder.
== END 2018-12-30 18:54 | disposition home or self-care (01) ==
LOC: ED 15:40
DX: M25.532 Pain in left wrist (principal); S46.811A Strain of other muscles, fascia and tendons at shoulder and upper arm level, right arm, initial encounter; W18.39XA Other fall on same level, initial encounter; Y93.51 Activity, roller skating (inline) and skateboarding; F17.210 Nicotine dependence, cigarettes, uncomplicated
CPT/HCPCS: 99283

== ENCOUNTER 2019-01-05 07:52 | Outpatient (CLI) ==
--- NOTE | 2019-01-06 07:52 | MRI ---
EXAM: Brain MRI without contrast. HISTORY: Headache. COMPARISON: Brain MRI 07/27/[address] 05/29/2009. TECHNIQUE: Multiplanar, multisequence MR images were acquired of the brain without contrast. FINDINGS: No midline structures are central and the craniocervical junction is unremarkable. The ve ntricles, sulci and cisterns are generally normal in size and configuration. There is an ovoid 1.3 c m AP by 7.3 mm TX by 7.4 mm CC ovoid cystic lesion in the right choroidal fissure oriented along the long axis of the temporal lobe and choroidal fissure. This has a spindle shaped configuration on the sagittal images and follows cerebrospinal fluid on all pulse sequences. This is stable compared to the previous brain MRI and head CT. 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 The brain parenchyma has no diffusion restriction to suggest acute hypoperfusion or infarction. Ther e are no abnormal T2 or FLAIR hyperintensities and no abnormal foci of dark gradient echo signal. Th e corpus callosum is normal. The pituitary gland is unremarkable. There are no intraorbital masses. There has been previous left lens surgery. Mild mucosal thickenin g is present in the ethmoid air cells bilaterally and there is mild undulation of the nasal septum. Remainder of the paranasal sinuses, middle ears mastoids are clear. There is mild adenoidal hypertro phy with several small nasopharyngeal submucosal cysts. Flow voids are present in the major intracranial arteries and dural venous sinuses. IMPRESSION: 1. 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 This may represent eith er a neuroepithelial cyst or arachnoid cyst. 2. No intracranial hemorrhage, mass or acute cerebral infarct.
== END 2019-01-05 07:53 | disposition home or self-care (01) ==
LOC: RAD 07:52
PROVIDERS: ATTEND Nurse Practitioner Family
DX: R51 Headache (principal); H53.8 Other visual disturbances; G93.9 Disorder of brain, unspecified

== ENCOUNTER 2019-03-17 22:27 | Emergency (ER) ==
[2019-03-17 22:30] VITALS: BMI 23.3
[2019-03-17] MEDS ORDERED: GEODON IM STA (23:13)
--- NOTE | 2019-03-17 23:13 | ED.PDOC ---
General ED Provider: Dr. LEEROY CHAVEZ Chief Complaint: Behavioral Complaint Stated Complaint: p[atient states that he has a homicidal thoughts.He says the he feels like he would like to go to streets and shoot metamphetamine etc.He says that he is homicidal innhis thoughts. Time Seen by Physician: 22:35 Mode of Arrival: Walk-In Information Source: Patient Exam Limitations: No limitations Primary Care Provider: PAO FLORES Nursing and Triage Documentation Reviewed and Agree: Yes Does patient meet sepsis criteria?: No System Inflammatory Response Syndrome: Not Applicable Sepsis Protocol: For patient's 13 years and over: Temp is 96.8 and below OR 101 and greater Pulse >90 BPM Resp >20/minute Acutely Altered Mental Status Are patient's symptoms suggestive of a new infection, such as: -Pneumonia -Skin, Soft Tissue -Endocarditis -UTI -Bone, Joint Infection -Implantable Device -Acute Abdominal Infection -Wound Infection -Meningitis -Blood Stream Catheter Infection -Unknown Psychological Complaint Exam - Psychiatric Complaint/Exam Onset/Duration: Homicoidal thopughts.Patient states that he is homicidal Symptoms Are: Still present Timing: Constant Episodes Lasting: Hours Initial Severity: Severe Character: Present: Angry Aggravating: Reports: Recent stress Associated Signs And Symptoms: Reports: Hostile Related History: Reports: Suicidal thoughts, Homicidal thoughts Completed Suicide Risk Factors: Male, , Living alone, Unemployed Patient Accompanied By: Other Social Withdrawal Present: Yes Social Isolation Present: Yes Prior Suicide Attempt: No Injury From Prior Suicide Attempt: No Patient Uncooperative For Exam: No Mood: Present: Angry, Agitated, Anxious Appearance: Present: Clean Thought Process: Present: Illogical Insight: Present: Poor Memory: Intact Judgement: Impaired Danger To Others: Yes Patient Medically Stable For: Psych evaluation Differential Diagnoses: Anxiety, ETOH Intoxication, Homicidal Ideation, Acute Psychosis, Suicidal Ideation Review of Systems - Review Of Systems Constitutional: Reports: No symptoms Eyes: Reports: No symptoms Ears, Nose, Mouth, Throat: Reports: No symptoms Respiratory: Reports: No symptoms Cardiac: Reports: No symptoms GI: Reports: No symptoms : Reports: No symptoms Musculoskeletal: Reports: No symptoms Skin: Reports: No symptoms Neurological: Reports: No symptoms Endocrine: Reports: No symptoms Hematologic/Lymphatic: Reports: No symptoms All Other Systems: Reviewed and Negative Past Medical History - Past Medical History Previously Healthy: Yes Endocrine: Reports: Dyslipidemia Cardiovascular: Reports: Hypertension Respiratory: Reports: None Hematological: Reports: None Gastrointestinal: Reports: GERD Genitourinary: Reports: None, UTI Neuro/Psych: Reports: None Musculoskeletal: Reports: None Cancer: Reports: None Other Pertinent Past Medical History: Yes: ALCOHOLIC, abdominal pain - Surgical History General Surgical History: Reports: Other (CORNEAL [employer]ANS[employer]ANTS [id number] REMOVAL (LEFT)) - Family History Family History: Reports: Unknown - Social History Smoking Status: Current every day smoker, Heavy tobacco smoker Hx Substance Use: Yes Alcohol Screening: None - Immunizations Tetanus Shot up to Date: Yes Physical Exam - Physical Exam Appearance: Well-appearing Ill-appearing: None Pain Distress: None Eyes: EUGENE ENT: Ears normal, Nose normal, Oropharynx normal Neck: Supple Respiratory: Airway patent, Breath sounds clear Cardiovascular: RRR, Pulses normal GI/: Soft, Nontender Musculoskeletal: Normal strength, ROM intact Skin: Warm, Dry Neurological: Sensation intact, Motor intact Critical Care Note - Critical Care Note Total Time (mins): 0 Course - Course Hematology/Chemistry: 03/17/19 23:59 03/17/19 23:59 Orders, Labs, Meds: Lab Review 03/17/19 03/17/19 03/17/19 23:59 23:59 23:59 WBC 9.58 RBC 4.63 L Hgb 13.3 L Hct 40.2 L MCV 86.8 MCH 28.7 MCHC 33.1 RDW Coeff of Zoey 13.2 Plt Count 233 Immature Gran % (Auto) 0.4 Neut % (Auto) 72.1 Lymph % (Auto) 19.8 Grant % (Auto) 5.5 Eos % (Auto) 1.4 Baso % (Auto) 0.8 Immature Gran # (Auto) 0.0 Neut # (Auto) 6.9 Lymph # (Auto) 1.9 Grant # (Auto) 0.5 Eos # (Auto) 0.1 Baso # (Auto) 0.1 Sodium 138.2 Potassium 3.94 Chloride 105.0 Carbon Dioxide 26.4 Anion Gap 10.74 BUN 9.2 Creatinine 0.92 Estimated GFR (MDRD) 94.00 BUN/Creatinine Ratio 10.00 Glucose 104.5 Calcium 9.11 Total Bilirubin 0.40 AST 29.4 ALT 13.2 Alkaline Phosphatase 61.6 Total Protein 6.69 Albumin 4.55 Globulin 2.14 Albumin/Globulin Ratio 2.12 Salicylate Level mg/dL < 1.00 Urine Opiates Screen Ur Oxycodone Screen Urine Methadone Screen Ur Propoxyphene Screen Acetaminophen < 10.0 L Ur Barbiturates Screen U Tricyclic Antidepress Ur Phencyclidine Scrn Ur Amphetamine Screen U Methamphetamines Scrn U Benzodiazepines Scrn Urine Cocaine Screen U Cannabinoids Screen 03/18/19 00:00 WBC RBC Hgb Hct MCV MCH MCHC RDW Coeff of Zoey Plt Count Immature Gran % (Auto) Neut % (Auto) Lymph % (Auto) Grant % (Auto) Eos % (Auto) Baso % (Auto) Immature Gran # (Auto) Neut # (Auto) Lymph # (Auto) Grant # (Auto) Eos # (Auto) Baso # (Auto) Sodium Potassium Chloride Carbon Dioxide Anion Gap BUN Creatinine Estimated GFR (MDRD) BUN/Creatinine Ratio Glucose Calcium Total Bilirubin AST ALT Alkaline Phosphatase Total Protein Albumin Globulin Albumin/Globulin Ratio Salicylate Level mg/dL Urine Opiates Screen Negative Ur Oxycodone Screen Negative Urine Methadone Screen Negative Ur Propoxyphene Screen Negative Acetaminophen Ur Barbiturates Screen Negative U Tricyclic Antidepress Negative Ur Phencyclidine Scrn Negative Ur Amphetamine Screen Negative U Methamphetamines Scrn Negative U Benzodiazepines Scrn Negative Urine Cocaine Screen Negative U Cannabinoids Screen Positive Orders Category Date Time Status EKG-(ED ONLY) Stat CARDIO 03/18/19 06:00 Completed ACETAMINOPHEN Stat LAB 03/17/19 23:59 Completed CBC W/ AUTO DIFF Stat LAB 03/17/19 23:59 Completed COMPREHENSIVE METABOLIC PANEL Stat LAB 03/17/19 23:59 Completed SALICYLATE Stat LAB 03/17/19 23:59 Completed URINE DRUG SCREEN (RAPID FOR ED) [DRUG SCREEN, URINE, LAB 03/18/19 00:00 Completed RAPID] Stat Ziprasidone Mesylate [Geodon] MEDS 03/17/19 23:13 Discontinued 10 mg IM ONCE STA Medications Discontinued Medications Generic Name Dose Route Start Last Admin Trade Name Freq PRN Reason Stop Dose Admin Ziprasidone 10 mg 03/17/19 23:13 03/17/19 23:28 Geodon IM 03/17/19 23:14 10 mg ONCE STA Administration Vital Signs: Temp Pulse Resp BP Pulse Ox 03/18/19 06:41 98 F 74 18 128/74 98 03/18/19 02:30 98.3 F 82 18 136/82 97 03/17/19 22:27 98.2 F 87 16 173/78 H 98 Departure - Departure Time of Disposition: 07:05 Disposition: TSF SHORT-TRM HOSP Discharge Problem: Behaviour disorder Condition: Good Pt referred to PMD for follow-up: Yes IPMP verified?: No Additional Instructions: myaz Allergies/Adverse Reactions: Allergies clindamycin Adverse Reaction (Verified 03/17/19 22:30) Hives Home Medications: Ambulatory Orders 1 [No Reported Medications] 12/30/18 Disposition Discussed With: Patient
[2019-03-18 06:42] VITALS: BP 128/74; TEMP 98
== END 2019-03-18 18:11 | disposition short-term general hospital (02) ==
LOC: ED 22:27
DX: F98.9 Unspecified behavioral and emotional disorders with onset usually occurring in childhood and adolescence (principal); E78.5 Hyperlipidemia, unspecified; I10 Essential (primary) hypertension; F17.210 Nicotine dependence, cigarettes, uncomplicated
CPT/HCPCS: 36415; 80053; 80306; 80307; 85025; 93005; 93010; 99283

== ENCOUNTER 2019-06-22 | Emergency (ER) | END 2019-06-22 17:15 | disposition home or self-care (01) | CPT/HCPCS: 99282 ==